=== PATIENT | male | born 2000 | race Hispanic/Latino ===

== ENCOUNTER 2019-10-24 15:28 | Emergency (ER) | payer SELFPAY ==
[~2019-10-24] VITALS: Ht 182.9 cm; Wt 127.0 kg
[2019-10-24 16:41] LABS: STREPTOCOCCUS GRP A ANTIGEN NEGATIVE (NEGATIVE)
[2019-10-24 16:58] LABS: INFLUENZAE A&B ANTIGEN (RAPID) NEGATIVE (NEGATIVE)
--- NOTE | 2019-10-24 17:34 | Diagnostic Imaging Report ---
Examination: PA and lateral view of the chest. COMPARISON: None. INDICATION: Cough DISCUSSION: Lines/tubes: None. Lungs: The lungs are well inflated and clear. No pneumonia or pulmonary edema. Pleura: No pleural effusion or pneumothorax. Heart and mediastinum: The heart and the mediastinum are unremarkable. Bones and soft tissues: No acute bony abnormalities. IMPRESSION: 1. No acute cardiopulmonary abnormalities. Signed by: Dr. Toby Nye M.D. on 10/24/2019 5:30 PM
[2019-10-24 17:37] VITALS: BP 117/76
== END 2019-10-24 17:39 | disposition home or self-care (01) ==
LOC: ER 15:28
DX: R05 Cough (principal); J20.9 Acute bronchitis, unspecified
CPT/HCPCS: 71046; 83518; 87070; 87400; 99283